=== PATIENT | female | born 1965 | race Two or more races ===

== ENCOUNTER 2018-10-28 15:52 | Inpatient (IN) | payer MEDICARE, MEDICAID ==
[~2018-10-28] VITALS: Ht 165.1 cm; Wt 93.0 kg
[2018-10-28] MEDS ORDERED: SODIUM CHLORIDE 0.9% 1,000 ML IV ONE (16:39)
[2018-10-28 17:42] LABS: Basophils # (auto) 0.1 uL; Eosinophils # (auto) 0.1 uL; Lymphocytes # (auto) 1.5 uL; White Blood Cell 4.1 10^3/uL (4.4-10.8)
[2018-10-28 17:51] LABS: Nucleated Red Blood Cells % 0.3 %; Red Cell Distribution Width 18.6 % (11.8-14.3)
[2018-10-28 17:54] LABS: Chloride 107 mmol/L (98-107); Potassium 3.6 mmol/L (3.5-5.1); Sodium 139 mmol/L (136-145)
[2018-10-28 17:58] LABS: Basophils % (auto) 1.8 % (0.0-2.0); Eosinophils % (auto) 2.6 % (0.0-7.0); Lymphocytes % (auto) 37.3 % (10.0-50.0); Monocytes % (auto) 8.3 % (0.0-12.0)
[2018-10-28 17:59] LABS: Albumin 3.9 g/dL (3.4-5.0); Anion Gap 8 (5-15); Blood Urea Nitrogen 10 mg/dL (7-18); Calcium 8.4 mg/dL (8.5-10.1); Carbon Dioxide 24 mmol/L (21-32); Glucose 105 mg/dL (74-106)
[2018-10-28 18:00] LABS: Hematocrit 22.6 % (36.0-46.0); Mean Corpuscular Volume 59.1 fL (80.0-100.0); Monocytes # (auto) 0.3 uL; Red Blood Cells 3.81 10^6/uL (4.0-5.20)
[2018-10-28 18:01] LABS: Mean Corpuscular Hemoglobin 17.3 pg (28.0-32.0); Mean Corpuscular Hgb Conc. 29.3 g/dL (32.0-36.0); Platelet Count (auto) 555 10^3/uL (140-450)
[2018-10-28 18:03] LABS: Hemoglobin 6.6 g/dL (12.2-16.2)
[2018-10-28 18:04] LABS: Alanine Aminotransferase 57 U/L (13-56); Alkaline Phosphatase 92 U/L (45-117); Aspartate Aminotransferase 44 U/L (15-37); BUN/Creatinine Ratio 15.6; Bilirubin, Total 0.3 mg/dL (0.2-1.0); GFR African American 125 mL/min; GFR Non-African American 104 mL/min; Total Protein 8.8 g/dL (6.4-8.2)
[2018-10-28 19:22] LABS: Partial Thromboplastin Time 42.7 sec (23.78-33.04); Prothrombin Time 41.9 sec (9.27-12.13)
[2018-10-28 19:25] LABS: INR 4.25 (0.9-1.15)
[2018-10-28] MEDS ORDERED: ACETAMINOPHEN 500 MG TAB PO PRN (21:00)
[2018-10-28] MEDS ORDERED: ONDANSETRON HCL 4 MG/2 ML VIAL IV PRN (21:00)
[2018-10-28 21:20] VITALS: BP 114/62
[2018-10-28 21:43] VITALS: BP 138/63
[2018-10-28] MEDS: QUEtiapine FUMARATE 100 MG TAB PO SCH (23:05)
[2018-10-29 04:39] VITALS: BP 94/54
[2018-10-29 07:47] LABS: Eosinophils # (auto) 0.1 uL; Monocytes # (auto) 0.3 uL; White Blood Cell 3.3 10^3/uL (4.4-10.8)
[2018-10-29 07:48] LABS: Basophils # (auto) 0 uL; Basophils % (auto) 1.2 % (0.0-2.0); Eosinophils % (auto) 4.1 % (0.0-7.0); Hemoglobin 7.2 g/dL (12.2-16.2); Lymphocytes # (auto) 1.6 uL; Lymphocytes % (auto) 47.3 % (10.0-50.0); Mean Corpuscular Hemoglobin 18.1 pg (28.0-32.0); Mean Corpuscular Hgb Conc. 28.9 g/dL (32.0-36.0); Mean Corpuscular Volume 62.7 fL (80.0-100.0); Monocytes % (auto) 10.4 % (0.0-12.0); Neutrophils # (auto) 1.2 uL; Nucleated Red Blood Cells % 0.4 %; Platelet Count (auto) 462 10^3/uL (140-450); Red Blood Cells 3.99 10^6/uL (4.0-5.20)
[2018-10-29 08:02] LABS: Red Cell Distribution Width 20.6 % (11.8-14.3)
[2018-10-29 08:05] LABS: BUN/Creatinine Ratio 13.3; Calcium 8.2 mg/dL (8.5-10.1); Potassium 3.8 mmol/L (3.5-5.1)
[2018-10-29 08:06] LABS: % Iron Saturation 3.7 % (15-50)
[2018-10-29 08:23] LABS: Prothrombin Time 54.9 sec (9.27-12.13)
[2018-10-29 08:24] LABS: Partial Thromboplastin Time 40.4 sec (23.78-33.04)
[2018-10-29 08:25] LABS: INR 5.92 (0.9-1.15)
[2018-10-29] MEDS: HYDROcodone-ACET 5/325MG TAB PO PRN (09:14)
[2018-10-29 09:18] VITALS: BP 140/69
[2018-10-29 11:53] LABS: Folate (Folic Acid) 17.05 ng/mL (5.38-24)
[2018-10-29] MEDS ORDERED: PHYTONADIONE (VIT K)10 MG/ML 1ML VIAL SUBCUT ONE (12:15)
[2018-10-29 12:41] VITALS: BP 112/60
[2018-10-29] MEDS: SODIUM CHLORIDE 0.9% 1,000 ML IV SCH (13:00)
[2018-10-29] MEDS: CYANOCOBALAMIN 500 MCG TAB PO SCH (13:09)
[2018-10-29] MEDS: SODIUM FERR GLUC 62.5MG/5ML 125 MG in SODIUM CHL 0.9% 100 ML IV SCH (14:30)
[2018-10-29 16:40] VITALS: BP 124/69
[2018-10-29 18:35] LABS: Eosinophils # (auto) 0.1 uL; Hemoglobin 7.7 g/dL (12.2-16.2); Monocytes # (auto) 0.4 uL; White Blood Cell 3.7 10^3/uL (4.4-10.8)
[2018-10-29 18:37] LABS: Basophils # (auto) 0.1 uL; Basophils % (auto) 3.2 % (0.0-2.0); Eosinophils % (auto) 3.5 % (0.0-7.0); Hematocrit 26.2 % (36.0-46.0); Lymphocytes # (auto) 1.4 uL; Lymphocytes % (auto) 38.4 % (10.0-50.0); Mean Corpuscular Hemoglobin 18.6 pg (28.0-32.0); Mean Corpuscular Hgb Conc. 29.5 g/dL (32.0-36.0); Mean Corpuscular Volume 63.3 fL (80.0-100.0); Neutrophils # (auto) 1.6 uL; Neutrophils % (auto) 44.9 % (37.0-80.0); Nucleated Red Blood Cells % 0.2 %; Platelet Count (auto) 497 10^3/uL (140-450); Red Blood Cells 4.14 10^6/uL (4.0-5.20)
[2018-10-29 18:55] LABS: Red Cell Distribution Width 21.2 % (11.8-14.3)
[2018-10-29 21:14] LABS: Urine Bacteria FEW /hpf (None Seen); Urine Blood Negative /uL (Negative); Urine Specific Gravity 1.008 (1.001-1.035); Urine WBC 8 /hpf (0 - 5)
[2018-10-29] MEDS: QUEtiapine FUMARATE 100 MG TAB PO SCH (21:25)
[2018-10-29 22:00] VITALS: BP 143/71
[2018-10-30] MEDS: SODIUM CHLORIDE 0.9% 1,000 ML IV SCH ×2 (00:56→17:30)
[2018-10-30 05:00] VITALS: BP 103/57
[2018-10-30 05:40] LABS: INR 2.77 (0.9-1.15); Partial Thromboplastin Time 31.5 sec (23.78-33.04)
[2018-10-30 05:42] LABS: Calcium 8.3 mg/dL (8.5-10.1); Potassium 3.6 mmol/L (3.5-5.1)
[2018-10-30 05:44] LABS: BUN/Creatinine Ratio 8.8
[2018-10-30 09:00] VITALS: BP 126/67
[2018-10-30] MEDS: CYANOCOBALAMIN 500 MCG TAB PO SCH (09:51)
[2018-10-30] MEDS: SODIUM FERR GLUC 62.5MG/5ML 125 MG in SODIUM CHL 0.9% 100 ML IV SCH (12:09)
[2018-10-30 13:00] VITALS: BP 124/78
[2018-10-30 14:59] LABS: Follicle Stimulating Hormone 42.11 IU/L (SEE BELOW); Leuteinizing Hormone 31.7 IU/L
[2018-10-30 16:51] VITALS: BP 144/77
[2018-10-30] MEDS: HYDROcodone-ACET 5/325MG TAB PO PRN (20:13)
[2018-10-30] MEDS: QUEtiapine FUMARATE 100 MG TAB PO SCH (21:53)
[2018-10-30 22:00] VITALS: BP 148/72
[2018-10-31 05:00] VITALS: BP 124/70
[2018-10-31] MEDS: SODIUM CHLORIDE 0.9% 1,000 ML IV SCH ×2 (06:28→17:35)
[2018-10-31] MEDS ORDERED: LEVOTHYROXINE SODIUM 25 MCG TAB PO SCH (07:00)
[2018-10-31 08:10] LABS: Basophils # (auto) 0.1 uL; Hemoglobin 7.3 g/dL (12.2-16.2); Lymphocytes # (auto) 1.5 uL; Mean Corpuscular Hgb Conc. 29.3 g/dL (32.0-36.0); Monocytes # (auto) 0.4 uL; Neutrophils # (auto) 1.8 uL
[2018-10-31 08:12] LABS: Basophils % (auto) 1.8 % (0.0-2.0); Eosinophils # (auto) 0.1 uL; Eosinophils % (auto) 3.4 % (0.0-7.0); Hematocrit 24.9 % (36.0-46.0); Lymphocytes % (auto) 38.1 % (10.0-50.0); Mean Corpuscular Hemoglobin 18.4 pg (28.0-32.0); Mean Corpuscular Volume 62.8 fL (80.0-100.0); Monocytes % (auto) 10.4 % (0.0-12.0); Neutrophils % (auto) 46.3 % (37.0-80.0); Nucleated Red Blood Cells % 0.3 %; Platelet Count (auto) 452 10^3/uL (140-450); Red Blood Cells 3.96 10^6/uL (4.0-5.20)
[2018-10-31 08:17] LABS: Red Cell Distribution Width 21.7 % (11.8-14.3)
[2018-10-31 08:24] LABS: INR 1.31 (0.9-1.15); Prothrombin Time 13.8 sec (9.27-12.13)
[2018-10-31 08:27] LABS: BUN/Creatinine Ratio 9.1; Calcium 8.5 mg/dL (8.5-10.1); Magnesium 2.2 mg/dL (1.6-2.6); Potassium 3.6 mmol/L (3.5-5.1)
[2018-10-31 09:00] VITALS: BP 117/58
[2018-10-31] MEDS: CYANOCOBALAMIN 500 MCG TAB PO SCH (10:11)
[2018-10-31 13:00] VITALS: BP 135/71
[2018-10-31] MEDS ORDERED: IRON SUCROSE COMPLEX 200 MG in SODIUM CHL 0.9% 100 ML IV SCH (13:00)
[2018-10-31 16:50] VITALS: BP 110/63
[2018-10-31] MEDS ORDERED: WARFARIN SODIUM 2.5 MG TAB PO ONE (17:00)
[2018-10-31 18:29] VITALS: BP 130/80
== END 2018-10-31 18:40 | disposition home or self-care (01) | DRG 812 ==
LOC: ER 15:52 → TELE 21:00 → TELE-WESTW 22:08
PROVIDERS: ADMIT Nurse Practitioner Family; ATTEND Internal Medicine
PROC: 30233N1 Transfusion of Nonautologous Red Blood Cells into Peripheral Vein, Percutaneous Approach (ICD-10-PCS; principal; 2018-10-28)
DX: D50.9 Iron deficiency anemia, unspecified (principal); G81.94 Hemiplegia, unspecified affecting left nondominant side; B69.0 Cysticercosis of central nervous system; N92.0 Excessive and frequent menstruation with regular cycle; E03.9 Hypothyroidism, unspecified; E66.9 Obesity, unspecified; F32.9 Major depressive disorder, single episode, unspecified; Z82.49 Family history of ischemic heart disease and other diseases of the circulatory system; Z81.8 Family history of other mental and behavioral disorders; Z86.73 Personal history of transient ischemic attack (TIA), and cerebral infarction without residual deficits; Z68.34 Body mass index [BMI] 34.0-34.9, adult
CPT/HCPCS: 36415; 36430; 70450; 71045; 76830; 76856; 80048; 80053; 81001; 82270; 82607; 82670; 82728; 82746; 83001; 83002; 83540; 83550; 83735; 84439; 84443; 84484; 84702; 85025; 85610; 85730; 86850; 86900; 86901; 86920; 96361; 96365; G0378; J3430

== ENCOUNTER → 2018-12-09 | Outpatient (CLI) | payer MEDICARE, MEDICAID ==
[~2018-12-09] MED LIST: QUET150T2 PO
[2018-12-09 13:09] LABS: Basophils # (auto) 0.1 uL; Eosinophils # (auto) 0.1 uL; Lymphocytes # (auto) 1.4 uL; Mean Corpuscular Hemoglobin 25.7 pg (28.0-32.0); Monocytes # (auto) 0.3 uL; Neutrophils # (auto) 1.7 uL
[2018-12-09 13:12] LABS: Basophils % (auto) 1.7 % (0.0-2.0); Eosinophils % (auto) 3.1 % (0.0-7.0); Hematocrit 36.5 % (36.0-46.0); Lymphocytes % (auto) 38.3 % (10.0-50.0); Mean Corpuscular Hgb Conc. 32.9 g/dL (32.0-36.0); Mean Corpuscular Volume 78.1 fL (80.0-100.0); Monocytes % (auto) 9.6 % (0.0-12.0); Neutrophils % (auto) 47.3 % (37.0-80.0); Nucleated Red Blood Cells % 0.2 %; Platelet Count (auto) 298 10^3/uL (140-450); Red Blood Cells 4.68 10^6/uL (4.0-5.20); White Blood Cell 3.6 10^3/uL (4.4-10.8)
[2018-12-09 13:14] LABS: INR 0.94 (0.9-1.15); Partial Thromboplastin Time 26.6 sec (23.64-32.05)
[2018-12-09 13:23] LABS: Red Cell Distribution Width 32.6 % (11.8-14.3)
[2018-12-09 13:46] LABS: Calcium 9.3 mg/dL (8.5-10.1); Potassium 4.4 mmol/L (3.5-5.1)
[2018-12-09 13:50] LABS: BUN/Creatinine Ratio 16.9; Bilirubin, Total 0.5 mg/dL (0.2-1.0); Total Protein 8.5 g/dL (6.4-8.2)
== END | disposition home or self-care (01) ==
LOC: LAB 12:35
PROVIDERS: ATTEND Internal Medicine
DX: D64.9 Anemia, unspecified (principal); E03.9 Hypothyroidism, unspecified; R79.89 Other specified abnormal findings of blood chemistry
CPT/HCPCS: 36415; 80053; 80061; 83036; 85025; 85610; 85730

== ENCOUNTER → 2019-03-04 | Outpatient (CLI) | payer MEDICARE, MEDICAID ==
[2019-03-04 16:54] LABS: Basophils # (auto) 0.1 uL; Basophils % (auto) 1.5 % (0.0-2.0); Eosinophils # (auto) 0.1 uL; Eosinophils % (auto) 1.9 % (0.0-7.0); Hematocrit 35.2 % (36.0-46.0); Hemoglobin 11.6 g/dL (12.2-16.2); Lymphocytes # (auto) 1.4 uL; Lymphocytes % (auto) 38.9 % (10.0-50.0); Mean Corpuscular Hgb Conc. 33.1 g/dL (32.0-36.0); Mean Corpuscular Volume 84.6 fL (80.0-100.0); Monocytes # (auto) 0.3 uL; Monocytes % (auto) 7.6 % (0.0-12.0); Neutrophils # (auto) 1.8 uL; Neutrophils % (auto) 50.1 % (37.0-80.0); Nucleated Red Blood Cells % 0.1 %; Platelet Count (auto) 307 10^3/uL (140-450); Red Blood Cells 4.16 10^6/uL (4.0-5.20); Red Cell Distribution Width 13.8 % (11.8-14.3); White Blood Cell 3.6 10^3/uL (4.4-10.8)
[2019-03-04 17:08] LABS: Albumin 3.8 g/dL (3.4-5.0); Calcium 8.6 mg/dL (8.5-10.1); Potassium 3.6 mmol/L (3.5-5.1)
[2019-03-04 17:14] LABS: % Iron Saturation 9.5 % (15-50); BUN/Creatinine Ratio 17.1; Bilirubin, Total 0.5 mg/dL (0.2-1.0); Total Protein 8.4 g/dL (6.4-8.2)
[2019-03-04 17:16] LABS: Ferritin 8.7 ng/mL (10-322); Folate (Folic Acid) 15.27 ng/mL (5.38-24)
== END | disposition home or self-care (01) ==
LOC: LAB 16:09
PROVIDERS: ATTEND Internal Medicine
DX: D64.9 Anemia, unspecified (principal)
CPT/HCPCS: 36415; 80053; 82607; 82728; 82746; 83540; 83550; 83615; 85025

== ENCOUNTER 2019-12-01 09:13 | Inpatient (IN) | payer MEDICARE, MEDICAID ==
[~2019-12-01] VITALS: Ht 165.1 cm; Wt 106.0 kg
[2019-12-01] MEDS ORDERED: SODIUM CHLORIDE 0.9% 1,000 ML IV ONE (09:36)
[2019-12-01 10:08] LABS: Basophils # (auto) 0 10 ^3/uL (0-0.2); Basophils % (auto) 1.2 % (0.0-2.0); Eosinophils # (auto) 0.1 10 ^3/uL (0-0.8); Eosinophils % (auto) 1.5 % (0.0-7.0); Hematocrit 35.7 % (36.0-46.0); Hemoglobin 11.6 g/dL (12.2-16.2); Lymphocytes # (auto) 1.2 10 ^3/uL (0.4-5.4); Lymphocytes % (auto) 30.5 % (10.0-50.0); Mean Corpuscular Hemoglobin 27.1 pg (28.0-32.0); Mean Corpuscular Hgb Conc. 32.6 g/dL (32.0-36.0); Mean Corpuscular Volume 83.2 fL (80.0-100.0); Monocytes # (auto) 0.5 10 ^3/uL (0-1.3); Monocytes % (auto) 13.1 % (0.0-12.0); Neutrophils # (auto) 2.1 10 ^3/uL (1.6-8.6); Neutrophils % (auto) 53.7 % (37.0-80.0); Platelet Count (auto) 306 10^3/uL (140-450); Red Blood Cells 4.29 10^6/uL (4.0-5.20); Red Cell Distribution Width 16.2 % (11.8-14.3); White Blood Cell 3.9 10^3/uL (4.4-10.8)
[2019-12-01 10:24] LABS: Albumin 3.7 g/dL (3.4-5.0); Anion Gap 7 (5-15); Blood Urea Nitrogen 11 mg/dL (7-18); Calcium 8.4 mg/dL (8.5-10.1); Carbon Dioxide 22 mmol/L (21-32); Chloride 109 mmol/L (98-107); Glucose 101 mg/dL (74-106); INR 1.06 (0.9-1.15); Partial Thromboplastin Time 28.9 sec (23.64-32.05); Potassium 3.7 mmol/L (3.5-5.1); Sodium 138 mmol/L (136-145)
[2019-12-01 10:30] LABS: Alanine Aminotransferase 32 U/L (13-56); Alkaline Phosphatase 73 U/L (45-117); Aspartate Aminotransferase 22 U/L (15-37); BUN/Creatinine Ratio 16.7; Bilirubin, Total 0.5 mg/dL (0.2-1.0); GFR African American 120 mL/min; GFR Non-African American 100 mL/min; Total Protein 7.8 g/dL (6.4-8.2)
[2019-12-01 11:34] LABS: Urine Bacteria FEW /hpf (None Seen); Urine Blood Negative /uL (Negative); Urine Specific Gravity 1.003 (1.001-1.035); Urine WBC 1 /hpf (0 - 5)
[2019-12-01] MEDS ORDERED: MORPHINE SULF INJ 2 MG/ML SYRINGE 1ML IV PRN (13:30)
[2019-12-01] MEDS ORDERED: ASPirin 81 mg TAB PO ONE (13:30)
[2019-12-01] MEDS ORDERED: ONDANSETRON HCL 4 MG/2 ML VIAL IV PRN (13:30)
[2019-12-01] MEDS ORDERED: DOCUSATE SOD 100 MG CAP PO PRN (13:30)
[2019-12-01] MEDS ORDERED: ACETAMINOPHEN 500 MG TAB PO PRN (13:30)
[2019-12-01] MEDS ORDERED: NITROGLYCERIN 0.4 MG SL TAB SL PRN (13:30)
[2019-12-01] MEDS: MORPHINE SULF INJ 2 MG/ML SYRINGE 1ML IV PRN ×2 (14:38→19:37)
[2019-12-01 17:00] VITALS: BP 125/75
[2019-12-01] MEDS ORDERED: LORazepam 2MG/ML-1ML VIAL IV PRN (18:45)
[2019-12-01] MEDS: ATORVASTATIN 20 MG TAB PO SCH (22:28)
[2019-12-01] MEDS: QUEtiapine FUMARATE 25 MG TAB PO PRN (22:29)
[2019-12-01 22:42] VITALS: BP 124/66
[2019-12-02 05:15] VITALS: BP 117/65
[2019-12-02 06:29] LABS: Basophils # (auto) 0 10 ^3/uL (0-0.2); Eosinophils # (auto) 0.1 10 ^3/uL (0-0.8); Eosinophils % (auto) 2.6 % (0.0-7.0); Hemoglobin 11.7 g/dL (12.2-16.2); Lymphocytes # (auto) 1.3 10 ^3/uL (0.4-5.4); Lymphocytes % (auto) 33.6 % (10.0-50.0); Mean Corpuscular Hemoglobin 27.5 pg (28.0-32.0); Mean Corpuscular Hgb Conc. 33.3 g/dL (32.0-36.0); Mean Corpuscular Volume 82.7 fL (80.0-100.0); Monocytes # (auto) 0.4 10 ^3/uL (0-1.3); Monocytes % (auto) 10.2 % (0.0-12.0); Neutrophils # (auto) 2.1 10 ^3/uL (1.6-8.6); Neutrophils % (auto) 52.6 % (37.0-80.0); Platelet Count (auto) 300 10^3/uL (140-450); Red Blood Cells 4.24 10^6/uL (4.0-5.20); Red Cell Distribution Width 16.1 % (11.8-14.3)
[2019-12-02 06:40] LABS: Calcium 8.4 mg/dL (8.5-10.1); Potassium 3.8 mmol/L (3.5-5.1)
[2019-12-02 06:42] LABS: BUN/Creatinine Ratio 12.5
[2019-12-02] MEDS: FAMOTIDINE 20 MG TAB PO SCH (08:46)
[2019-12-02 08:48] VITALS: BP 98/59
[2019-12-02] MEDS ORDERED: ASPirin 81 mg TAB PO SCH (10:00)
[2019-12-02] MEDS: HYDROcodone-ACET 5/325MG TAB PO PRN ×2 (11:28→18:32)
[2019-12-02 12:34] VITALS: BP 114/68
[2019-12-02] MEDS: predniSONE 20 MG TAB PO SCH ×2 (14:13→21:55)
[2019-12-02 17:01] VITALS: BP 114/58
[2019-12-02] MEDS: QUEtiapine FUMARATE 25 MG TAB PO PRN (21:55)
[2019-12-02] MEDS: ATORVASTATIN 20 MG TAB PO SCH (21:55)
[2019-12-02 22:00] VITALS: BP 120/78
[2019-12-03 05:00] VITALS: BP 119/74
[2019-12-03] MEDS: predniSONE 20 MG TAB PO SCH ×3 (06:23→21:47)
[2019-12-03 08:38] VITALS: BP 116/64
[2019-12-03] MEDS ORDERED: MIRTAZAPINE 30 MG TAB PO PRN (08:45)
[2019-12-03] MEDS: CITALOPRAM HYDROBR 20 MG TAB PO SCH (09:49)
[2019-12-03] MEDS: FAMOTIDINE 20 MG TAB PO SCH (09:49)
[2019-12-03 12:51] VITALS: BP 134/68
[2019-12-03 17:07] VITALS: BP 116/61
[2019-12-03 22:00] VITALS: BP 141/77
[2019-12-04 05:00] VITALS: BP 126/72
[2019-12-04] MEDS: predniSONE 20 MG TAB PO SCH (06:24)
[2019-12-04 08:17] VITALS: BP 109/57
[2019-12-04] MEDS: CITALOPRAM HYDROBR 20 MG TAB PO SCH (10:04)
[2019-12-04] MEDS: FAMOTIDINE 20 MG TAB PO SCH (10:04)
[2019-12-04 12:19] VITALS: BP 112/63
[2019-12-04 13:04] VITALS: BP 138/76
== END 2019-12-04 13:40 | disposition home or self-care (01) | DRG 65 ==
LOC: ER 09:13 → TELE 09:14 → TELE-WESTW 14:53
PROVIDERS: ADMIT Nurse Practitioner Acute Care; ATTEND Family Medicine
DX: I63.9 Cerebral infarction, unspecified (principal); G45.9 Transient cerebral ischemic attack, unspecified; I69.354 Hemiplegia and hemiparesis following cerebral infarction affecting left non-dominant side; D64.9 Anemia, unspecified; D72.819 Decreased white blood cell count, unspecified; E66.9 Obesity, unspecified; F41.9 Anxiety disorder, unspecified; F32.9 Major depressive disorder, single episode, unspecified; I10 Essential (primary) hypertension; G47.00 Insomnia, unspecified; Z68.38 Body mass index [BMI] 38.0-38.9, adult; Z79.82 Long term (current) use of aspirin; Z79.899 Other long term (current) drug therapy; Z81.8 Family history of other mental and behavioral disorders; Z82.49 Family history of ischemic heart disease and other diseases of the circulatory system; R29.810 Facial weakness; G83.24 Monoplegia of upper limb affecting left nondominant side
CPT/HCPCS: 36415; 70450; 70551; 71045; 80048; 80053; 81001; 83690; 84443; 84484; 85025; 85610; 85730; 93005; 93306; 93886; 95819; 96361; 96374; G0378; J2405

== ENCOUNTER 2020-12-05 14:15 | Inpatient (IN) | payer OTHER, MEDICAID ==
[~2020-12-05] VITALS: Ht 165.1 cm; Wt 110.1 kg
[2020-12-05 14:57] LABS: Eosinophils # (auto) 0.1 10 ^3/uL (0-0.8); Hematocrit 35.5 % (36.0-46.0); Hemoglobin 11.9 g/dL (12.2-16.2); Lymphocytes # (auto) 1.6 10 ^3/uL (0.4-5.4); White Blood Cell 4.6 10^3/uL (4.4-10.8)
[2020-12-05 15:01] LABS: Basophils # (auto) 0.1 10 ^3/uL (0-0.2); Basophils % (auto) 1.5 % (0.0-2.0); Eosinophils % (auto) 2.3 % (0.0-7.0); Lymphocytes % (auto) 35.2 % (10.0-50.0); Mean Corpuscular Hemoglobin 27.6 pg (28.0-32.0); Mean Corpuscular Hgb Conc. 33.4 g/dL (32.0-36.0); Mean Corpuscular Volume 82.7 fL (80.0-100.0); Monocytes # (auto) 0.5 10 ^3/uL (0-1.3); Monocytes % (auto) 11.7 % (0.0-12.0); Neutrophils # (auto) 2.3 10 ^3/uL (1.6-8.6); Neutrophils % (auto) 49.3 % (37.0-80.0); Nucleated Red Blood Cells % 0.2 %; Platelet Count (auto) 350 10^3/uL (140-450); Red Cell Distribution Width 15.8 % (11.8-14.3)
[2020-12-05 15:13] LABS: Albumin 3.8 g/dL (3.4-5.0); Anion Gap 9 (5-15); Blood Urea Nitrogen 5 mg/dL (7-18); Carbon Dioxide 24 mmol/L (21-32); Chloride 108 mmol/L (98-107); Glucose 105 mg/dL (74-106); Potassium 3.9 mmol/L (3.5-5.1); Sodium 141 mmol/L (136-145)
[2020-12-05 15:22] LABS: Alanine Aminotransferase 158 U/L (13-56); Alkaline Phosphatase 86 U/L (45-117); Aspartate Aminotransferase 126 U/L (15-37); BUN/Creatinine Ratio 8.5; Bilirubin, Total 0.7 mg/dL (0.2-1.0); GFR African American 137 mL/min; GFR Non-African American 113 mL/min; Total Protein 7.9 g/dL (6.4-8.2)
[2020-12-05] MEDS ORDERED: NITROGLYCERIN 0.4 MG SL TAB SL ONE (15:30)
[2020-12-05] MEDS ORDERED: ASPirin 81 mg TAB PO ONE ×2 (16:30)
[2020-12-05] MEDS ORDERED: ENOXAPARIN SOD 100 MG/1 ML SYRINGE SC ONE (16:30)
[2020-12-05] MEDS ORDERED: MORPHINE SULF INJ 2 MG/ML SYRINGE 1ML IV PRN (16:30)
[2020-12-05] MEDS ORDERED: NITROGLYCERIN 0.4 MG SL TAB SL PRN (16:30)
[2020-12-05] MEDS ORDERED: ALPRAZolam 0.5 MG TAB PO PRN (16:30)
[2020-12-05] MEDS ORDERED: EPTIFIBATIDE INJ (2MG/ML) 10ML VIAL IV ONE (16:45)
[2020-12-05] MEDS: SOD CHL 0.45% 1,000 ML IV SCH (17:17)
[2020-12-05 17:35] LABS: Partial Thromboplastin Time 24.8 sec (23.0-31.2)
[2020-12-05] MEDS ORDERED: NITROGLYCERIN 0.2MG/HR TOPICAL PATCH TD SCH (18:00)
[2020-12-05] MEDS: EPTIFIBATIDE DRIP(0.75MG/ML) 100 ML IV SCH (18:13)
[2020-12-05] MEDS: ATORVASTATIN 20 MG TAB PO SCH (22:47)
[2020-12-05] MEDS: METOPROLOL TARTRATE 25 MG TAB PO SCH (22:48)
[2020-12-05] MEDS: QUEtiapine FUMARATE 100 MG TAB PO SCH (22:48)
[2020-12-06] MEDS: EPTIFIBATIDE DRIP(0.75MG/ML) 100 ML IV SCH ×4 (00:21→22:06)
[2020-12-06] MEDS ORDERED: ENOXAPARIN SOD 120 MG/0.8 ML SYRINGE SC SCH (06:00)
[2020-12-06] MEDS: SOD CHL 0.45% 1,000 ML IV SCH (06:20)
[2020-12-06 08:02] LABS: Basophils # (auto) 0 10 ^3/uL (0-0.2); Eosinophils # (auto) 0.1 10 ^3/uL (0-0.8); Eosinophils % (auto) 3.7 % (0.0-7.0); Hematocrit 31.8 % (36.0-46.0); Hemoglobin 10.8 g/dL (12.2-16.2); Lymphocytes # (auto) 1.4 10 ^3/uL (0.4-5.4); Lymphocytes % (auto) 41.5 % (10.0-50.0); Mean Corpuscular Hemoglobin 28.1 pg (28.0-32.0); Mean Corpuscular Volume 82.7 fL (80.0-100.0); Monocytes # (auto) 0.4 10 ^3/uL (0-1.3); Monocytes % (auto) 12.9 % (0.0-12.0); Neutrophils # (auto) 1.4 10 ^3/uL (1.6-8.6); Neutrophils % (auto) 40.9 % (37.0-80.0); Nucleated Red Blood Cells % 0.3 %; Platelet Count (auto) 301 10^3/uL (140-450); Red Blood Cells 3.84 10^6/uL (4.0-5.20); Red Cell Distribution Width 15.5 % (11.8-14.3); White Blood Cell 3.3 10^3/uL (4.4-10.8)
[2020-12-06 08:15] LABS: Potassium 3.6 mmol/L (3.5-5.1)
[2020-12-06 08:19] LABS: Albumin 3.4 g/dL (3.4-5.0); BUN/Creatinine Ratio 9.1; Calcium 8.3 mg/dL (8.5-10.1)
[2020-12-06 08:22] LABS: Bilirubin, Total 0.9 mg/dL (0.2-1.0)
[2020-12-06] MEDS: LEVOTHYROXINE SODIUM 25 MCG TAB PO SCH (09:12)
[2020-12-06] MEDS: ASPirin 81 mg TAB PO SCH (09:13)
[2020-12-06] MEDS: METOPROLOL TARTRATE 25 MG TAB PO SCH ×2 (09:13→21:52)
[2020-12-06] MEDS: SERTRALINE HCL 50 MG TAB PO SCH (09:14)
[2020-12-06] MEDS: PANTOPRAZOLE 40 MG TAB PO SCH (09:14)
[2020-12-06] MEDS ORDERED: ENOXAPARIN SOD 100 MG/1 ML SYRINGE SC SCH (10:00)
[2020-12-06] MEDS ORDERED: MORPHINE SULF INJ 2 MG/ML SYRINGE 1ML IV PRN (12:30)
[2020-12-06] MEDS ORDERED: NITROGLYCERIN 0.4 MG SL TAB SL PRN (12:30)
[2020-12-06] MEDS ORDERED: LEVO125T7 PO (14:44)
[2020-12-06 16:58] VITALS: BP 111/76
[2020-12-06] MEDS: NITROGLYCERIN 0.2MG/HR TOPICAL PATCH TD SCH (18:15)
[2020-12-06 21:45] VITALS: BP 103/61
[2020-12-06] MEDS: ATORVASTATIN 20 MG TAB PO SCH (21:50)
[2020-12-06] MEDS: QUEtiapine FUMARATE 100 MG TAB PO SCH (21:52)
[2020-12-06] MEDS: ENOXAPARIN SOD 100 MG/1 ML SYRINGE SC SCH (21:52)
[2020-12-07] MEDS: SOD CHL 0.45% 1,000 ML IV SCH ×3 (00:47→21:45)
[2020-12-07 05:42] VITALS: BP 92/45
[2020-12-07] MEDS: LEVOTHYROXINE SODIUM 25 MCG TAB PO SCH ×2 (05:49→05:52)
[2020-12-07 05:56] VITALS: BP 113/61
[2020-12-07 07:15] LABS: Urine Bacteria FEW /hpf (None Seen); Urine Blood Negative /uL (Negative); Urine Specific Gravity 1.008 (1.001-1.035); Urine WBC 3 /hpf (0 - 5)
[2020-12-07] MEDS ORDERED: IODIXANOL 320MG/ML 100ML BTL IV ONE (08:45)
[2020-12-07] MEDS ORDERED: LIDOCAINE 2%HCL (LOCAL ANESTH.) INJ 20ML MDV ONE (08:45)
[2020-12-07 09:00] VITALS: BP 110/57
[2020-12-07] MEDS ORDERED: VERAPAMIL 2.5MG/ML INJ 2ML VIAL IV ONE (09:02)
[2020-12-07] MEDS ORDERED: fentaNYL CITRATE 100 MCG/2 ML VL ONE (09:02)
[2020-12-07] MEDS ORDERED: MIDAZOLAM HCL 1MG/1ML-2 ML VIAL ONE (09:02)
[2020-12-07] MEDS ORDERED: ANGIOMAX 250 MG VIAL IV ONE (09:02)
[2020-12-07] MEDS ORDERED: HEPARIN SODIUM (PORCINE) 5000 UNITS/ML 1ML VIAL ONE (09:02)
[2020-12-07] MEDS ORDERED: SODIUM CHL 0.9% 0 ML ONE (09:03)
[2020-12-07] MEDS: ENOXAPARIN SOD 100 MG/1 ML SYRINGE SC SCH ×2 (10:00→21:46)
[2020-12-07] MEDS: PANTOPRAZOLE 40 MG TAB PO SCH (12:59)
[2020-12-07] MEDS: SERTRALINE HCL 50 MG TAB PO SCH (12:59)
[2020-12-07] MEDS: ASPirin 81 mg TAB PO SCH (12:59)
[2020-12-07 13:00] VITALS: BP 115/53
[2020-12-07] MEDS: NITROGLYCERIN 0.2MG/HR TOPICAL PATCH TD SCH (13:00)
[2020-12-07] MEDS: METOPROLOL TARTRATE 25 MG TAB PO SCH ×2 (13:01→21:45)
[2020-12-07 14:56] LABS: Cholesterol 163 mg/dL (< 200); HDL Cholesterol 31 mg/dL (40-59); LDL Cholesterol 112 mg/dL (< 100); Triglycerides 185 mg/dL (< 150)
[2020-12-07 17:00] VITALS: BP 115/67
[2020-12-07] MEDS: QUEtiapine FUMARATE 100 MG TAB PO SCH (21:46)
[2020-12-07 22:00] VITALS: BP 119/53
[2020-12-07] MEDS ORDERED: ATORVASTATIN 20 MG TAB PO SCH (22:00)
[2020-12-08 05:00] VITALS: BP 112/64
[2020-12-08] MEDS: LEVOTHYROXINE SODIUM 25 MCG TAB PO SCH (06:12)
[2020-12-08 08:49] VITALS: BP 79/50
[2020-12-08] MEDS ORDERED: dilTIAZem 120MG ER CAP PO SCH (10:00)
[2020-12-08] MEDS: METOPROLOL TARTRATE 25 MG TAB PO SCH (10:00)
[2020-12-08] MEDS: NITROGLYCERIN 0.2MG/HR TOPICAL PATCH TD SCH (10:00)
[2020-12-08] MEDS: PANTOPRAZOLE 40 MG TAB PO SCH (10:03)
[2020-12-08] MEDS: ASPirin 81 mg TAB PO SCH (10:03)
[2020-12-08] MEDS: SERTRALINE HCL 50 MG TAB PO SCH (10:03)
[2020-12-08] MEDS: ENOXAPARIN SOD 100 MG/1 ML SYRINGE SC SCH (10:04)
[2020-12-08] MEDS: SOD CHL 0.45% 1,000 ML IV SCH (10:48)
[2020-12-08 13:00] VITALS: BP 106/54
== END 2020-12-08 15:49 | disposition home or self-care (01) | DRG 287 ==
LOC: ER 14:15 → TELE 16:29 → TELE-WESTW 12-06 14:30
PROVIDERS: ADMIT Internal Medicine; ATTEND Internal Medicine
PROC: 4A023N7 Measurement of Cardiac Sampling and Pressure, Left Heart, Percutaneous Approach (ICD-10-PCS; principal; 2020-12-07)
PROC: B211YZZ Fluoroscopy of Multiple Coronary Arteries using Other Contrast (ICD-10-PCS; 2020-12-07)
PROC: B215YZZ Fluoroscopy of Left Heart using Other Contrast (ICD-10-PCS; 2020-12-07)
DX: I25.118 Atherosclerotic heart disease of native coronary artery with other forms of angina pectoris (principal); E03.9 Hypothyroidism, unspecified; Z20.822 Contact with and (suspected) exposure to COVID-19; I10 Essential (primary) hypertension; F41.9 Anxiety disorder, unspecified; F32.9 Major depressive disorder, single episode, unspecified; E78.00 Pure hypercholesterolemia, unspecified; E66.01 Morbid (severe) obesity due to excess calories; K21.9 Gastro-esophageal reflux disease without esophagitis; E78.5 Hyperlipidemia, unspecified; Z82.49 Family history of ischemic heart disease and other diseases of the circulatory system; Z83.3 Family history of diabetes mellitus; Z81.8 Family history of other mental and behavioral disorders; Z80.1 Family history of malignant neoplasm of trachea, bronchus and lung; Z68.38 Body mass index [BMI] 38.0-38.9, adult; Z79.01 Long term (current) use of anticoagulants; Z79.899 Other long term (current) drug therapy
CPT/HCPCS: 36415; 71045; 80053; 80061; 81001; 83880; 84443; 84484; 85025; 85610; 85730; 86850; 86900; 86901; 87426; 93005; 93306; 93458; 96365; 96372; 99152; G0378; J2250; Q9967

== ENCOUNTER 2022-01-11 18:38 | Emergency (ER) | payer OTHER, MEDICAID ==
[~2022-01-11] VITALS: Ht 165.1 cm; Wt 102.1 kg
[~2022-01-11 18:38] MED LIST changes: +LEVO125T7 PO
[2022-01-11 18:55] VITALS: BP 168/60
== END 2022-01-11 23:16 | disposition left against medical advice (07) ==
LOC: ER 18:38
DX: R51.9 Headache, unspecified (principal); W18.39XA Other fall on same level, initial encounter; Y93.89 Activity, other specified; Y92.89 Other specified places as the place of occurrence of the external cause; Y99.8 Other external cause status
CPT/HCPCS: 70450; 72131; 72170

== ENCOUNTER 2024-03-09 20:47 | Emergency (ER) | payer OTHER, MEDICAID ==
[~2024-03-09] VITALS: Ht 165.1 cm; Wt 105.0 kg
[2024-03-09 21:36] VITALS: TEMP 98.2
[2024-03-09] MEDS: KETOROLAC TROMETH 30 MG/ML 1ML VIAL IM ONE (21:43)
[2024-03-09 21:53] LABS: Basophils # (auto) 0.1 10 ^3/uL (0-0.2); Basophils % (auto) 1.2 % (0.0-2.0); Eosinophils # (auto) 0.1 10 ^3/uL (0-0.8); Eosinophils % (auto) 2.5 % (0.0-7.0); Hematocrit 35.6 % (36.0-46.0); Hemoglobin 11.4 g/dL (12.2-16.2); Lymphocytes # (auto) 2.5 10 ^3/uL (0.4-5.4); Lymphocytes % (auto) 49.6 % (10.0-50.0); Mean Corpuscular Hemoglobin 27.2 pg (28.0-32.0); Mean Corpuscular Hgb Conc. 32.1 g/dL (32.0-36.0); Mean Corpuscular Volume 84.8 fL (80.0-100.0); Monocytes # (auto) 0.5 10 ^3/uL (0-1.3); Monocytes % (auto) 9.8 % (0.0-12.0); Neutrophils # (auto) 1.8 10 ^3/uL (1.6-8.6); Neutrophils % (auto) 36.9 % (37.0-80.0); Nucleated Red Blood Cells % 0.1 %; Platelet Count (auto) 284 10^3/uL (140-450); Red Cell Distribution Width 16.5 % (11.8-14.3); White Blood Cell 4.9 10^3/uL (4.4-10.8)
[2024-03-09 22:33] LABS: Chloride 111 mmol/L (98-107); Potassium 3.6 mmol/L (3.5-5.1); Sodium 140 mmol/L (136-145)
[2024-03-09 22:34] LABS: Anion Gap 9 (5-15); Calcium 9.8 mg/dL (8.7-10.4); Carbon Dioxide 20 mmol/L (20-30)
[2024-03-09 22:39] LABS: Blood Urea Nitrogen 10 mg/dL (9-23); Glucose 100 mg/dL (74-106)
[2024-03-09 22:49] LABS: INR 0.97 (0.9-1.15); Prothrombin Time 10.3 sec (9.3-11.8)
[2024-03-09] MEDS: HYDROcodone-ACET 5/325MG TAB PO ONE (23:04)
[2024-03-09] MEDS ORDERED: HYDR-4902 PO (23:24)
[2024-03-09 23:37] VITALS: BP 139/64; PULSE 59; RESP 18; O2SAT 96
== END 2024-03-09 23:50 | disposition home or self-care (01) ==
LOC: ER 20:47
DX: M79.604 Pain in right leg (principal); I10 Essential (primary) hypertension; E78.5 Hyperlipidemia, unspecified; E03.9 Hypothyroidism, unspecified; E66.9 Obesity, unspecified; Z68.38 Body mass index [BMI] 38.0-38.9, adult; Z86.73 Personal history of transient ischemic attack (TIA), and cerebral infarction without residual deficits; Z79.899 Other long term (current) drug therapy
CPT/HCPCS: 36415; 73562; 80048; 85025; 85379; 85610; 93971; 96372; 99285; J1885